=== PATIENT | male | born 1945 | race Caucasian/White ===

== ENCOUNTER 2018-05-27 07:00 | Inpatient (IN) | payer OTHER ==
[~2018-05-27] VITALS: Ht 170.2 cm; Wt 63.5 kg
[~2018-05-27 07:00] MED LIST: AMLODIPINE BESYL5 M1 PO; ASPIRIN325 M2 PO; ATORVASTATIN CA80 M1 PO; GLUCOPHAGE850 M2 PO; HIGH POTENCY I134 MG PO; LISINOPRIL20 M1 PO; METFORMIN HCL500 M3 PO; METOPROLOL TART25 M1 PO; NORVASC5 M1 PO
--- NOTE | 2018-05-30 20:08 | Admission Core Measures ---
Acute Coronary Syndrome (CM) ACS Core Measures Acute Coronary Syndrome Diagnosis No Congestive Heart Failure (NEW) CHF Core Measures Congestive Heart Failure Diagnosis No Cerebrovascular Accident CVA Core Measures CVA/TIA Diagnosis No Venous Thromboembolism VTE Core Gloria (View Protocol) VTE Risk Factors Surgery No Mechanical VTE Prophylaxis d/t N/A MechProphylax Ordered No VTE Pharm Prophylaxis d/t NA PharmProphylax ordered Problem List As ranked by this Provider includes Assessment & Plan 1. CVA (cerebral vascular accident) 2. Diabetes 3. Hypertension 4. Atrial fibrillation HOME MEDS Home Med List Ferrous Sulfate (High Potency Iron) 134 MG (27 MG) TABLET 1 TAB PO DAILY SUPPLEMENT (Reported) Metformin HCl (Glucophage) 850 MG TABLET 1 TAB PO BID DM (Reported) Metoprolol Tartrate 25 MG TABLET 1 TAB PO DAILY HEART/BP (Reported)
--- NOTE | 2018-05-30 20:17 | Surgical Discharge Summary ---
Visit Information Visit Dates Admission Date: 05/30/18 History of Present Illness Chief Complaint: 73 Y/O MALE WAS ADMITTED ON 05/30/[address] GALINDO AND UNDERWENT A RIGHT HEMICOLECTOMY AND CHOLECYSTECTOMY. HE TOLERATED THE PROCEDURE WELL AND WAS TRANSFERRED TO THE SURGICAL FLOOR. HIS DIET WAS SLOWLY ADVANCED. HE HAS A COUDE CATHETER PLACED INTRAOPERATIVELY BY DR. KEENAN. HE HAS SMALL BLOOD CLOTS IN THE URINE BUT THIS CLEARED WITHOUT INCIDENT. Medical History Cardiovascular: aortic stenosis, hypertension Endocrine: diabetes History of MRSA: No History of VRE: No History of CDIFF: No Isolation History: Standard Surgical History Pertinent Surgical History: non-contributory Psychosocial History Who Do You Live With? Spouse What is Your Primary Language? [place] Hospital Course Course Attending Physician: Kj Galindo MD [facility]: RIGHT HEMICOLECTOMY LAP CHOLECYSTECTOMY COUDE CATHETER PLACED BY DR KEENAN Complications: NONE Allergies: Coded Allergies: losartan (UNKNOWN 05/27/18) Disposition Summary Disposition Principal Diagnosis: COLON CANCER Additional Diagnosis: CHOLECYSTITIS Discharge Disposition: hospice - home Discharge Instructions General Discharge Information Code Status: Full Code Patient's Diet: LOW RESIDUAL DIET Patient's Activity: SELF LIMITED Follow-Up Instructions/Appts: 1 WEEK Medications at Discharge Discharge Medications: Continue taking these medications: Metoprolol Tartrate (Metoprolol Tartrate) 25 MG TABLET 1 Tablet ORAL DAILY Ferrous Sulfate (High Potency Iron) 134 MG (27 MG) TABLET 1 Tablet ORAL DAILY Copies To: Kj Galindo MD
[2018-05-30 21:00] VITALS: BP 182/84
--- NOTE | 2018-05-30 23:24 | PN- General Surgery ---
Subjective Subjective: 73 Y/O MALE S/P RIGHT HEMICOLECTOMY AND CHOLECYSTECTOMY. DOING WELL NO COMPLAINTS, RESTING IN BED BISHOP WITH 250CC THIS EVENING NO CLOTS Review of Systems: PAIN CONTROLLED NO FEVERS OR CHILLS NO WOUND DRAINAGE Objective Vital Signs and I&Os Vital Signs Date Time Temp Pulse Resp B/P B/P Pulse O2 O2 Flow FiO2 Mean Ox Delivery Rate 05/30 2130 97 Nasal 3.0L Cannula 05/30 2100 97.9 84 18 182/84 97 Room Air VSS AFEBRILE HEART-RRR WITHOUT MRG ABD- GENERALIZED SORENESS QUIET, DRESSINGS DRY CHEST-CTA BILATERAL LOWER EXTREMITIES -CALVES SOFT, NO EDEMA Assessment/Plan Assessment/Plan POST-OP CHECK BISHOP TO GRAVITY -COUDE PLACED BY REE INTEROP DUE TO DIFFICULTY INSERTION -NO BLOOD OR CLOTS DECREASE IVF AND ADVANCE DIET SLOWLY AM LABS PENDING HSQ DVT PROPH OOB AMBULATING Core Measures Venous Thromboembolism VTE Risk Factors Surgery No Mechanical VTE Prophylaxis d/t N/A MechProphylax Ordered No VTE Pharm Prophylaxis d/t NA PharmProphylax ordered
[2018-05-31] VITALS (7 sets, daily range): BP systolic 148–180; BP diastolic 80–92
--- NOTE | 2018-05-31 07:50 | PN- General Surgery ---
Subjective Subjective: Patient is comfortable without complaints, uneventful evening pain controlled 500 overnight in herman - no blood not passing gas Objective Vital Signs and I&Os Vital Signs Date Time Temp Pulse Resp B/P B/P Pulse O2 O2 Flow FiO2 Mean Ox Delivery Rate 05/31 0642 97.9 70 20 180/82 95 Room Air 05/31 0540 180/82 05/31 0314 98.3 74 18 148/82 99 Nasal 3.0L Cannula 05/31 0103 97.9 75 20 158/88 99 Nasal 3.0L Cannula 05/31 0000 94 Nasal 3.0L Cannula 05/30 2130 97 Nasal 3.0L Cannula 05/30 2100 97.9 84 18 182/84 97 Room Air Intake & Output 05/31 0800 05/31 0000 05/30 1600 05/30 0800 05/30 0000 05/29 1600 Intake Total 830 300 Output Total 1000 Balance -170 300 Intake, IV 800 300 Intake, Oral 30 Output, Urine 1000 Weight Reported by Patient Measurement Method VSS afebrile chest -CTA symmetric heart-RRR without MRG Abd - dressings dry, generalized soreness pos BS bilateral lower extremities - calves soft, distal pulses intact feet warm Assessment/Plan Assessment/Plan POD #1 [place], open right hemicolectomy Blood sugar elevated- on insulin sliding scale -change fluids to NS HTN -started back on preop meds awaiting am labs pos BS -advance diet slowly per Dr. Lynn herman to remain in -will discuss with Dr. Escalona Core Measures Venous Thromboembolism VTE Risk Factors Surgery No Mechanical VTE Prophylaxis d/t N/A MechProphylax Ordered No VTE Pharm Prophylaxis d/t NA PharmProphylax ordered
--- NOTE | 2018-05-31 08:14 | Patient Discharge Instructions ---
Discharge Instructions General Discharge Information You were seen/treated for: COLON CANCER AND CHOLECYSTITIS You had these procedures: LAP JONI, RIGHT HEMICOLECTOMY Watch for these problems: WOUND DRAINAGE, REDNESS INCREASING PAIN, FEVERS AND CHILLS Call Surgeon to remove: [place] (WOUND CHECK) Do not soak the wound: No Daily wet to dry dressings: No No bath, but you may shower: Yes Other wound care: KEEP INCISIONS DRY, CHANGE WITH DRY DRESSINGS NEEDED Special Instructions: Follow up with primary MD regarding blood sugar medications within two weeks of discharge. Monitor fasting blood sugars and record. Diet Continue normal diet: No (LOW RESIDUAL DIET) Recommended Diet: Low Residue Activity Full Activity/No Limits: No Activity Self Limited: Yes Activity Limited to: Weight bear as tolerated Other activity limits: NO HEAVY LIFTING Acute Coronary Syndrome Inclusion Criteria At DC or during hospital stay patient has or had the following: ACS DIAGNOSIS No Discharge Core Measures Meds if any: Prescribed or Continued at Discharge Meds if any: NOT Prescribed or Continued at Discharge Congestive Heart Failure Inclusion Criteria At DC or during hospital stay patient has or had the following: CHF DIAGNOSIS No Discharge Core Measures Meds if any: Prescribed or Continued at Discharge Meds if any: NOT Prescribed or Continued at Discharge Cerebrovascular accident Inclusion Criteria At DC or during hospital stay patient has or had the following: CVA/TIA Diagnosis No Discharge Core Measures Meds if any: Prescribed or Continued at Discharge Meds if any: NOT Prescribed or Continued at Discharge Venous thromboembolism Inclusion Criteria VTE Diagnosis No VTE Type NONE VTE Confirmed by (Test) NONE Discharge Core Measures - Per Current guidelines, there needs to be overlap - treatment for the first 5 days of Warfarin therapy. - If discharged on Warfarin prior to 5 days of - overlap therapy, the patient will need to be - assessed for post discharge needs including - *Post discharge parental anticoagulation - *Warfarin and/or parental anticoagulation education - *Follow up date to check INR post discharge At least 5 days overlap therapy as Inpatient No Meds if any: Prescribed or Continued at Discharge Note: Overlap Therapy is Warfarin and Anticoagulant Meds if any: NOT Prescribed or Continued at Discharge
[2018-05-31 09:46] LABS: ABSOLUTE BASOPHIL COUNT 0 /CUMM (0.0-0.2); ABSOLUTE EOSINOPHIL COUNT 0 /CUMM (0.0-0.7); ABSOLUTE GRANULOCYTE CT 10.1 /CUMM (1.4-6.5); ABSOLUTE LYMPH COUNT 0.5 /CUMM (1.2-3.4); BASOPHIL % 0.1 % (0.0-2.0); EOSINOPHIL % 0 % (0-5); GRANULOCYTE % 86.9 % (42.2-75.2); HEMATOCRIT 40.5 % (42-52); MEAN CORPUSCULAR HGB 26.4 PG (27.0-31.0); MEAN CORPUSCULAR HGB CONC 31.4 G/DL (33.0-37.0); MEAN CORPUSCULAR VOLUME 83.9 FL (80.0-94.0); MEAN PLATELET VOLUME 8.6 FL (7.4-10.4); PLATELET COUNT 223 /CUMM (130-400); RED BLOOD CELL CT 4.83 /CUMM (4.70-6.10); WHITE BLOOD CELL COUNT 11.7 /CUMM (4.8-10.8)
--- NOTE | 2018-05-31 11:26 | Cons- Endocrinology ---
General Information and HPI Consulting Request Date of Consult: 05/31/18 Requested By: surgical team Reason for Consult: management of hyperglycemia Source of Information: patient, old records Exam Limitations: no limitations History of Present Illness: 73 y/o male with hx of diabetes type 2 on metformin 850 mg twice a day, hx of atrial fibrillation, and hypertension, hx of hemochromatosis, was recently diagnosed with colon cancer, and underwent right hemicolectomy and cholecystectomy. POD #1. He is still kept NPO and is receiving NS at 100 ml/ hour. He is on RISS coverage every 6 hours and his FSGs were 270 and 276. His HbA1c was 5.9%. Allergies/Medications Allergies: Coded Allergies: losartan (UNKNOWN 05/27/18) Home Med List: Ferrous Sulfate (High Potency Iron) 134 MG (27 MG) TABLET 1 TAB PO DAILY SUPPLEMENT (Reported) Metformin HCl (Glucophage) 850 MG TABLET 1 TAB PO BID DM (Reported) Metoprolol Tartrate 25 MG TABLET 1 TAB PO DAILY HEART/BP (Reported) Review of Systems Review of Systems Constitutional: Reports: see HPI. Cardiovascular: Denies: chest pain. Respiratory: Denies: short of breath. GI: Reports: see HPI. Hematologic/Endocrine: Denies: polyuria, polydipsia. Past History Medical History Blood Transfusion Hx: No Neurological: CVA 2016 Cardiovascular: aortic stenosis, hypertension Endocrine: diabetes Blood Disorders: HEMOCROMATOSIS Surgical History Surgical History: non-contributory Psychosocial History Where Do You Live? Home Smoking Status: Never Smoked Exam & Diagnostic Data Last 24 Hrs of Vital Signs/I&O Vital Signs Date Time Temp Pulse Resp B/P B/P Pulse O2 O2 Flow FiO2 Mean Ox Delivery Rate 05/31 1003 73 20 178/92 95 05/31 0800 Room Air 05/31 0642 97.9 70 20 180/82 95 Room Air 05/31 0540 180/82 05/31 0314 98.3 74 18 148/82 99 Nasal 3.0L Cannula 05/31 0103 97.9 75 20 158/88 99 Nasal 3.0L Cannula 05/31 0000 94 Nasal 3.0L Cannula 05/30 2130 97 Nasal 3.0L Cannula 05/30 2100 97.9 84 18 182/84 97 Room Air Intake & Output 05/31 1600 05/31 0800 05/31 0000 Intake Total 830 300 Output Total 1000 Balance -170 300 Intake, IV 800 300 Intake, Oral 30 Output, Urine 1000 Weight Reported by Patient Measurement Method Physical Exam General Appearance: no apparent distress Neck: normal inspection Cardiovascular: irregularly irregular Gastrointestinal: s/p surgery Extremities: no edema Labs/Celso Results: Laboratory Tests 05/31 0627 Chemistry BUN (9 - 20 mg/dL) 14 Creatinine (0.7 - 1.2 mg/dL) 0.8 Estimated GFR (>60 ml/min) > 60 BUN/Creatinine Ratio (7 - 25 %) 17.5 Hemoglobin A1c (4.2 - 5.8 %) 5.9 H Hematology CBC w Diff MAN DIFF ORDERED WBC (4.8 - 10.8 /CUMM) 11.7 H RBC (4.70 - 6.10 /CUMM) 4.83 Hgb (14.0 - 18.0 G/DL) 12.7 L Hct (42 - 52 %) 40.5 L MCV (80.0 - 94.0 FL) 83.9 MCH (27.0 - 31.0 PG) 26.4 L MCHC (33.0 - 37.0 G/DL) 31.4 L RDW (11.5 - 14.5 %) 23.0 H Plt Count (130 - 400 /CUMM) 223 MPV (7.4 - 10.4 FL) 8.6 Gran % (42.2 - 75.2 %) 86.9 H Lymphocytes % (20.5 - 51.1 %) 4.7 L Monocytes % (1.7 - 9.3 %) 8.3 Eosinophils % (0 - 5 %) 0 Basophils % (0.0 - 2.0 %) 0.1 Absolute Granulocytes (1.4 - 6.5 /CUMM) 10.1 H Segmented Neutrophils (42.2 - 75.2 %) 81 H Band Neutrophils (0.0 - 5.0 %) 7 H Absolute Lymphocytes (1.2 - 3.4 /CUMM) 0.5 L Lymphocytes (20.5 - 51.1 %) 6 L Monocytes (1.7 - 9.3 %) 6 Absolute Monocytes (0.10 - 0.60 /CUMM) 1.0 H Absolute Eosinophils (0.0 - 0.7 /CUMM) 0 Absolute Basophils (0.0 - 0.2 /CUMM) 0 Platelet Estimate (ADEQUATE) VERIFIED BY SMEAR Anisocytosis 1+ Assessment/Plan Assessment/Plan 73 y/o male with hx of diabetes type 2 on metformin 850 mg twice a day, hx of atrial fibrillation, and hypertension, hx of hemochromatosis, was recently diagnosed with colon cancer, and underwent right hemicolectomy and cholecystectomy. POD #1. He is still kept NPO and is receiving NS at 100 ml/ hour. His FSGs were in the 200s. Plan: 1. start Levemir 10 units daily; 2. stop RISS every 6 hours; 3. start Novolog coverage every 4 hours; detail see the inpatient DM order; 4. monitor FSGs. 5. please inform me if his nutritional status changes and /or IVF changes, then his insulin regimen will be adjusted accordingly. will follow. Inpatient Diabetes Orders Every 4 Hours: Bolus Insulin: Novolog < 80 mg/dl: no coverage 80-100 mg/dl: no coverage 101-120 mg/dl: no coverage 121-150 mg/dl: no coverage 151-200 mg/dl: 2 units 201-250 mg/dl: 4 units 251-300 mg/dl: 6 units 301-350 mg/dl: 8 units 351-400 mg/dl: 10 units > 400 mg/dl: 12 units Consult Acknowledgment - Thank you for your consult request.
--- NOTE | 2018-05-31 22:24 | PN- General Surgery ---
Surgical Brief Attending Note Brief Attending Note: Feels well no flatus no nausea Vital signs stable afebrile abdomen soft no hematomas H&H down a little bit reflecting hydration no signs of bleeding continue present care try sips Appreciate endocrinology input
[2018-06-01 05:20] VITALS: BP 210/90
[2018-06-01 06:45] VITALS: BP 189/80
--- NOTE | 2018-06-01 09:11 | PN- General Surgery ---
See Addendum Subjective Subjective: +FLATUS, NO BM. NO N/V. NO CP/SOB. +OOB. PAIN WELL CONTROLLED. HTN OVERNIGHT- MEDS GIVEN EARLY Objective Vital Signs and I&Os Vital Signs Date Time Temp Pulse Resp B/P B/P Pulse O2 O2 Flow FiO2 Mean Ox Delivery Rate 06/01 0645 189/80 07/ 0524 85 210/90 06/01 0520 98.2 85 20 210/90 93 07 2259 98.6 82 18 178/84 90 Room Air 05/31 1820 98.4 87 18 165/80 91 Room Air 05/31 1353 99.0 66 18 172/86 94 Room Air 05/31 1003 73 20 178/92 95 Intake & Output 06/01 1600 06/01 0800 06/01 0000 05/31 1600 05/31 0800 05/31 0000 Intake Total 730 1050 830 300 Output Total 850 1350 1800 1000 Balance -120 -1350 -750 -170 300 Intake, IV 610 1050 800 300 Intake, Oral 120 0 30 Number 0 0 Bowel Movements Output, Urine 850 1350 1800 1000 Patient 140 lb Weight Weight Reported by Patient Measurement Method Physical Exam: GEN- NAD CARD-S1S2 PULM- NO AUDIBLE WHEEZE ABD- SOFT, TTP AT INCISIONS, STERIS IN PLACE, NO DRAINAGE/ERYTHEMA Assessment/Plan Assessment/Plan A- POD2 SP LAP R COLECTOMY, JONI, STABLE WITH BOWEL FXN RETURNING. P- CLR LIQUIDS HL WATCH BP- MAY NEED MEDICAL INPUT IF NO IMPROVEMENT OOB HEPSQ WATCH FS- IMPROVED ON CURRENT REGIMEN. AWAIT INPUT FROM ENDOCRINE D/W DR GALINDO Core Measures Venous Thromboembolism VTE Risk Factors Surgery No Mechanical VTE Prophylaxis d/t N/A MechProphylax Ordered No VTE Pharm Prophylaxis d/t NA PharmProphylax ordered
--- NOTE | 2018-06-01 10:36 | PN- Diabetes ---
Assessment/Plan Diabetes Assessment: 73 y/o male with hx of diabetes type 2 on metformin 850 mg twice a day, hx of atrial fibrillation, and hypertension, hx of hemochromatosis, was recently diagnosed with colon cancer, and underwent right hemicolectomy and cholecystectomy. His recent HbA1c was 5.9%. POD #1, he was kept NPO and was receiving NS at 100 ml/hour. His FSGs were in the 200s. He was put on Levemir 10 units daily and Novolog coverage every 4 hours. Every 4 Hours: Bolus Insulin: Novolog < 80 mg/dl: no coverage 80-100 mg/dl: no coverage 101-120 mg/dl: no coverage 121-150 mg/dl: no coverage 151-200 mg/dl: 2 units 201-250 mg/dl: 4 units 251-300 mg/dl: 6 units 301-350 mg/dl: 8 units 351-400 mg/dl: 10 units > 400 mg/dl: 12 units His FSGs were 141, 106, 139, 140. POD #2, he was started on clear liquid diet and he had irish ice. His FSG was 211 at around 9:30 am. Plan: 1. continue Levemir 10 units daily; 2. stop Novolog coverage every 4 hours; 3. start Novolog coverage before meals and Novolog coverage at bedtime--detail see the inpatient DM orders; 4. monitor FSGs. will follow. Inpatient Diabetes Orders Before Each Meal: Bolus Insulin: Novolog < 80 mg/dl: no coverage 80-100 mg/dl: no coverage 101-120 mg/dl: no coverage 121-150 mg/dl: no coverage 151-200 mg/dl: 2 units 201-250 mg/dl: 4 units 251-300 mg/dl: 6 units 301-350 mg/dl: 8 units 351-400 mg/dl: 10 units > 400 mg/dl: 12 units Bedtime: Bolus Insulin: Novolog < 80 mg/dl: no coverage 80-100 mg/dl: no coverage 101-120 mg/dl: no coverage 121-150 mg/dl: no coverage 151-200 mg/dl: no coverage 201-250 mg/dl: 2 units 251-300 mg/dl: 3 units 301-350 mg/dl: 4 units 351-400 mg/dl: 5 units > 400 mg/dl: 6 units Subjective Subjective: He feels okay. Objective Last 24 Hrs of Vital Signs/I&O Vital Signs Date Time Temp Pulse Resp B/P B/P Pulse O2 O2 Flow FiO2 Mean Ox Delivery Rate 06/01 0645 189/80 06/01 0524 85 210/90 06/01 0520 98.2 85 20 210/90 93 05/31 2259 98.6 82 18 178/84 90 Room Air 05/31 1820 98.4 87 18 165/80 91 Room Air 05/31 1353 99.0 66 18 172/86 94 Room Air Intake & Output 06/01 1600 06/01 0800 06/01 0000 Intake Total 730 Output Total 850 1350 Balance -120 -1350 Intake, IV 610 Intake, Oral 120 Number 0 Bowel Movements Output, Urine 850 1350 Patient 140 lb Weight
[2018-06-01 14:15] VITALS: BP 180/90
[2018-06-01 22:36] VITALS: BP 124/82
[2018-06-02 06:53] VITALS: BP 136/76
--- NOTE | 2018-06-02 07:30 | PN- General Surgery ---
See Addendum Subjective Subjective: Awake, alert No complaints overnight Tolerated clear liquids without any pain or nausea No bm but lots of flatus Absolutely no pain at all - not taking any pain meds Objective Vital Signs and I&Os Vital Signs Date Time Temp Pulse Resp B/P B/P Pulse O2 O2 Flow FiO2 Mean Ox Delivery Rate 06/02 0653 98.0 80 18 136/76 95 06/01 2236 98.3 82 18 124/82 94 Room Air 06/01 1415 97.8 69 20 180/90 95 Room Air Intake & Output 06/02 0806/02 0000 06/01 1600 06/01 0800 06/01 0000 05/31 1600 Intake Total 300 670 627 637 2609 Output Total 925 612 347 6133 1800 Balance 300 -255 170 -120 -1350 -750 Intake, IV 10 754 150 8592 Intake, Oral 300 660 620 120 0 Number 0 0 0 0 Bowel Movements Output, Urine 925 039 675 8459 1800 Patient 140 lb Weight Physical Exam: vss - bp improved afebrile General: alert and oriented times three Chest: clear anteriorly bilaterally Abd: soft, good bs, nondistended Wds: all look good, midline abd incision without any erythema or drainage Ext: warm, no edema, no calf tenderness Assessment/Plan Assessment/Plan 73yo male s/p lap R colectomy/erin pod 3 advance to fulls hep sc for dvt ppx/ALPS continue pain regimen as needed dc planning Core Measures Venous Thromboembolism VTE Risk Factors Surgery No Mechanical VTE Prophylaxis d/t N/A MechProphylax Ordered No VTE Pharm Prophylaxis d/t NA PharmProphylax ordered
--- NOTE | 2018-06-02 08:36 | PN- Diabetes ---
Assessment/Plan Diabetes Assessment: 73 y/o male with hx of diabetes type 2 on metformin 850 mg twice a day, hx of atrial fibrillation, and hypertension, hx of hemochromatosis, was recently diagnosed with colon cancer, and underwent right hemicolectomy and cholecystectomy. His recent HbA1c was 5.9%. Today is POD #3. He is going to be on full liquid diet. He was put on Levemir 10 units daily, Novolog coverage before meals and Novolog coverage at bedtime. His FSGs were 211, 197, 128, 155 and 141. As per patient, he might go home today. Plan: 1. continue the current insulin regimen as inpatient; 2. monitor his FSGs; 3. if he is medically stable for discharge, the discharge plan will be ---no insulin ---metformin 850 mg twice a day; ---monitor FSGs at home; --- f/u with his physician after discharge please call me if there are any questions. Subjective Subjective: He feels okay. Objective Last 24 Hrs of Vital Signs/I&O Vital Signs Date Time Temp Pulse Resp B/P B/P Pulse O2 O2 Flow FiO2 Mean Ox Delivery Rate 06/02 0812 80 142/98 07/ 0653 98.0 80 18 136/76 95 07/ 2236 98.3 82 18 124/82 94 Room Air 06/01 1415 97.8 69 20 180/90 95 Room Air Intake & Output 06/02 1600 07/05 0800 07/05 0000 Intake Total 300 670 Output Total 925 Balance 300 -255 Intake, IV 10 Intake, Oral 300 660 Number 0 Bowel Movements Output, Urine 925
[2018-06-02 14:23] VITALS: BP 112/66
--- NOTE | 2018-06-03 11:05 | Operative Report ---
Operative/Inv Procedure Report Surgery Date: 05/30/18 Name of Procedure: herman placement Pre-Operative Diagnosis: right colon cancer Post-Operative Diagnosis: Same Estimated Blood Loss: scant Surgeon/Hydraulic Dredge Operator: Sri Escalona Anesthesia: general endotracheal tube Drains: 18fr herman Complications: none Condition: stable Operative Indication: difficulty herman placement by OR nurse with blood tinged urine Operative/Procedure Note Note: 73-year-old male with colon cancer undergoing right hemicolectomy with Kj Lynch MD when the OR nurse encountered difficulty with Herman catheter placement. There was minimal urine output so the Herman was removed and there was a small clot and blood tinged urine. As result I was called in to place a Herman catheter as the patient had a history of prostate cancer status post treatment and previous years. An 18 [place] Herman catheter was placed after lidocaine gel was inserted into the urethral channel. The Herman placement was easy and without any obstruction or kinking of the catheter. 10 mL of water was placed into the balloon port. Reynolds-colored urine drained immediately about 20 mL. It was likely that he was dehydrated at the surgery was in the afternoon and had been nothing by mouth after midnight. Patient tolerated the procedure well. This left to gravity drainage and for the surgical team to manage the catheter and remove it as deemed appropriate. No need to leave a Herman catheter once the patient is awake and alert. Findings: No difficulty placing 18 [place] Herman catheter Discharge Disposition: PACU
--- NOTE | 2018-06-05 14:50 | Operative Report ---
Operative/Inv Procedure Report Surgery Date: 05/30/18 Name of Procedure: laparoscopic right hemicolectomy and laparoscopic choloecystectomy Pre-Operative Diagnosis: colon cancer, dilated gallbladder with stone Post-Operative Diagnosis: same, and gallbladder sludge Estimated Blood Loss: scant Surgeon/Truck Loader: Syed ADLER,Kj VELARDE Anesthesia: general endotracheal tube Operative/Procedure Note Note: I reviewed the outside CD and it shows some asc colon wall thickening and a quite dilated / folded gb,with a large gallstone, surprisingly no symptoms, discussed with patient that this is risky for symptoms in future, and a lap choly less likely after colectomy here hepatic flexure etc. Patient was positioned supine. After successful induction of general anesthesia, tap block was performed the patient's abdomen was clipped, prepped and draped in the usual sterile fashion. Local anesthetic was injected at the top of the umbilicus and then a curved horizontal incision little over a centimeter was made there with a 15 blade and then deepened to the midline fascia which was incised vertically a little over a centimeter. Both sides were secured with 0 Vicryl stay sutures and then the thin peritoneal layer was entered, 10 mm Larios trocar inserted obliquely to the right, and the gas was turned on to 15 mm. After insufflation and repositioning to reverse Trendelenburg, 3 more dissecting 5 mm trochars were placed in the right subcostal area, first lateral, then mid- subcostal, then subxiphoid. The abdomen was explored there was no free fluid peritoneal studding or obvious liver metastases. The gallbladder was enlarged we had to decompress it with a large bore needle difficult because very thick sludge, then fundus was grasped from the lateral port and retracted up over the edge of the liver and then we dissected out the area of the triangle of Calot while retracting the infundibulum caudally / laterally. First the cystic duct was identified, isolated at the neck, clipped 3 times, divided after the second clip and then in similar fashion the cystic artery was identified medially, dissected and divided, however there were several more branches going up posteriorly that had to be isolated and clipped. Then the gallbladder was from the liver bed using cautery then lowered into an Endobag and removed through the umbilical incision which was enlarged a little to accommodate the large gallbladder. It was noted that the patient's urine output was low, blood clots were noted in the [facility] came in and reinserted a Patterson catheter and then the urine output was good. For the colectomy, based on the trochars for the gallbladder and the preoperative CT, his cecum was low, we placed an additional 5 mm trocar in the midline infraumbilically and one in the left mid abdomen laterally just above the level of the umbilicus, to be able to triangulate the hepatic flexure. The tattooed tumor was obvious just above the cecum. The omentum was pushed up onto the liver, the patient was turned to the left gently pushing the bowel to the left. With atraumatic graspers the right colon was grasped via the superior trocar always trying to grab the fat around it instead of the bowel wall, and then mobilized medially by opening up the lateral and posterior attachments to the retroperitoneum with cautery including those to the terminal ileum and appendix continuing the retraction superiorly and mobilizing inferiorly and a little medially as well and then continuing laterally up towards the hepatic flexure along the white line of Toldt. Here cares taken to avoid injury to the ureter and gonadal vessels which are identified and left alone in a deeper plane , Also noted this was also the area of the ileocolic pedicle which was unusually thickened edematous and thus left for later. Thie dissection continued back and forth mostly with cautery and a little bit of blunt dissection in the avascular areas until it starts to come up off gerotas fascia and then the duodenum, the higher you get cares taken to avoid pulling because of the tension on the middle colic vessels. There was a separate right colic pedicle. Next the hepatic flexure is taken down with the aid of LigaSure where it's more vascular and care is taken to distinguish between an separate the mesocolon and the omentum here. To mobilize the proximal transverse colon we did separate the omentum from this section. At this point after mobilization and scoring the mesentery of the terminal ileum and the right colon medially we injected local anesthetic and then connected the 2 midline epigastric trochar incisions, about 7 cm long, we were able to keep this short because of his body habitus. The mobilized terminal ileum and colon were brought up out of the incision. A point on the transverse colon is marked lightly with cautery approximating where the right branch of the middle colic artery comes off. On the other end, the terminal ileum was similarly marked 10 cm proximal to the cecum and in both areas, a small window was made on the mesenteric border to chito the lines of transection of the mesentery. Having identified and divided with LigaSure, the right branch of the middle colic artery, there's a bare area in the mesentery next to the duodenum that leads to the main pedicles of the right colon. This right colic pedicle is identified in the mesenteric fat around it is partially cleared off. On the other side the distal small bowel mesentery is scored on both sides and then divided with LigaSure until the ileocolic pedicle was was identified and also cleared off some of the fat. These 2 adjacent pedicles are isolated near their origins and divided separately with the LigaSure after first suture ligating them with 2-0 Vicryl. Of note the ileocolic pedicle was much thicker we had to separate it and divided in 2 separate suture ligatures, was very dense , even the LigaSure would not engage, probably related to mesenteric involvement from the tumor, we still tried to make it a high ligation. Next a side to side functional end to end stapled anastomosis was made using a CAMILA stapler with two 80 mm cartridges, the first to make a common enterotomy, and the second to "T" -off the first. Before actually firing the stapler first we made sure that the distal small bowel and transverse colon are lined up parallel not twisted or stretched and that the mesenteric fat is cleared off circumferentially where the jazmyn will go, we placed a 3-0 silk suture at the top and at the bottom to line them up, then make adjacent enterotomies on the antimesenteric borders inserted the stapler check that fat hasn't rolled in posteriorly, and fired. The second firing which completes the anastomosis and the resection, is checked for hemostasis with cautery but also the corners are dunked with 3-0 silk Lemberts. Next the abdomen is irrigated checked for hemostasis small bowel is run and checked for any twisting and positioned down and away from the mesenteric defect, repeatedly checking the anastomosis for any bleeding or twisting. The position of the NG tube was checked and then the incision is closed in layers using 2 continuous runs of single 0 Maxon suture for the fascia then the subcutaneous layer is irrigated again, reapproximated subdermally with interrupted 3-0 Vicryl, followed by skin jazmyn and an island dressing. The remaining 5 mm trocar sites were closed with single subcuticular 4-0 Biosyn followed by Mastisol Steri-Strips and Band-Aids. EBL minimal lap and sponge counts correct wound expectancy was clean- contaminated, IV fluids crystalloid complications none, patient tolerated the procedure well and was returned to the recovery room in satisfactory condition.
== END 2018-06-02 16:31 | DRG 330 ==
LOC: SDA 07:00 → 2NB 05-30 04:27 → SDA 05-30 04:27 → EDSTATUS 05-30 07:00 → STS 05-30 07:00 → SDA 05-30 07:00 → ENRESERV 05-30 19:58 → ENTRNSPT 05-30 20:40 → EDTRNSPTSTS 05-30 21:13 → EDTRNSPT 05-30 21:13 → 2NB 05-30 21:19 → CMPTRNSPT 05-30 21:26 → 2NB 06-02 16:31
PROVIDERS: Physician Assistant
PROC: 3E0T3BZ Introduction of Anesthetic Agent into Peripheral Nerves and Plexi, Percutaneous Approach (ICD-10-PCS; principal; 2018-05-30)
PROC: 0FT44ZZ Resection of Gallbladder, Percutaneous Endoscopic Approach (ICD-10-PCS; principal; 2018-05-30)
PROC: 0DTF0ZZ Resection of Right Large Intestine, Open Approach (ICD-10-PCS; principal; 2018-05-30)
PROC: 0T9B70Z Drainage of Bladder with Drainage Device, Via Natural or Artificial Opening (ICD-10-PCS; 2018-05-30)
DX: C18.2 Malignant neoplasm of ascending colon (principal); K80.10 Calculus of gallbladder with chronic cholecystitis without obstruction; I35.0 Nonrheumatic aortic (valve) stenosis; E11.9 Type 2 diabetes mellitus without complications; Z79.84 Long term (current) use of oral hypoglycemic drugs; F17.200 Nicotine dependence, unspecified, uncomplicated; E83.119 Hemochromatosis, unspecified; Z96.651 Presence of right artificial knee joint; Z90.79 Acquired absence of other genital organ(s)
CPT/HCPCS: 2NBSP; 36415; 36592; 87086; C9290; J0131; J1100; J1644; J1815; J2405; J3490; J7042; J7120